=== PATIENT | male | born 1965 | race Caucasian/White ===

== ENCOUNTER 2016-10-10 13:12 | Emergency (ER) | payer BC ==
[~2016-10-10] VITALS: Ht 175.3 cm; Wt 79.5 kg
[~2016-10-10 13:12] MED LIST: CIPR500T4 PO; SUDA120T3 PO; TYLE3 PO; Z.0.NO CURRENT MEDS
[2016-10-10 13:15] VITALS: BP 148/76; PULSE 74; RESP 20; TEMP 98.3; O2SAT 98
[2016-10-10] MEDS ORDERED: HYDR-3533 PO (14:06)
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
[2016-10-10] MEDS ORDERED: ACETAMINOPHEN/HYDROcodone 325 MG/5 MG TAB PO ONE (14:15)
== END 2016-10-10 14:33 | disposition home or self-care (01) ==
LOC: NEPD 13:12
DX: S43.102A Unspecified dislocation of left acromioclavicular joint, initial encounter (principal); V18.4XXA Pedal cycle driver injured in noncollision transport accident in traffic accident, initial encounter
CPT/HCPCS: 99283

== ENCOUNTER 2017-03-24 18:57 | Emergency (ER) | payer BC ==
[~2017-03-24] VITALS: Ht 175.3 cm; Wt 81.7 kg
[~2017-03-24 18:57] MED LIST changes: -CIPR500T4 PO; +HYDR-3533 PO; -SUDA120T3 PO; -TYLE3 PO; -Z.0.NO CURRENT MEDS
[2017-03-24 19:02] VITALS: BP 137/79; PULSE 74; RESP 18; TEMP 97.9; O2SAT 97
[2017-03-24] MEDS ORDERED: IBUPROFEN 600 MG TAB PO ONE (19:45)
[2017-03-24] MEDS ORDERED: oxyCODONE/ACETAMINOPHEN 5 MG/325 MG TAB PO ONE (19:45)
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
--- NOTE | 2017-03-24 20:56 | RADRPT ---
EXAM DATE/TIME: 03/24/2017 20:10 This report includes an Addendum and supersedes previous reports for this exam. [facility] COMPARISON: No previous studies available for comparison. INDICATIONS : Left foot pain and swelling after a piece of metal fell on foot. MEDICAL HISTORY : None. SURGICAL HISTORY : Prior surgery to left ankle. ENCOUNTER: Initial ACUITY: 1 day PAIN SCORE: 9/10 LOCATION: Left dorsal foot. FINDINGS: There is an avulsion fracture through the proximal medial corner of the proximal phalanx great toe an d there is a minimally displaced fracture through the proximal phalanx of the fourth and fifth toes. No dislocation. No other fractures are seen. CONCLUSION: 1. Fractures through the proximal phalanx of the first, fourth and fifth toes without dislocation. Agustín Barnes MD on March 24, 2017 at 20:52 Board Certified Radiologist. This report was verified electronically. ADDENDUM: There is also a mildly displaced spiral fracture through the distal third metatarsal shaft. Agustín Barnes MD on March 24, 2017 at 21:22 Board Certified Radiologist. This report was verified electronically.
[2017-03-24] MEDS ORDERED: PERC5TAB12 PO (21:14)
[2017-03-24] MEDS ORDERED: IBUP1TAB7 PO (21:14)
== END 2017-03-24 21:51 | disposition home or self-care (01) ==
LOC: PHEFT 18:57
DX: S92.902A Unspecified fracture of left foot, initial encounter for closed fracture (principal); S92.415A Nondisplaced fracture of proximal phalanx of left great toe, initial encounter for closed fracture; W22.8XXA Striking against or struck by other objects, initial encounter; Y93.9 Activity, unspecified; Y92.9 Unspecified place or not applicable; Y99.9 Unspecified external cause status
CPT/HCPCS: 29515; 73630; 99283; E0113